=== PATIENT | female | born 1980 | race Caucasian/White ===

== ENCOUNTER 2021-05-08 18:13 | Emergency (ER) | payer OTHER ==
[~2021-05-08] VITALS: Ht 167.6 cm; Wt 121.0 kg
--- NOTE | 2021-05-08 18:48 | NUR ---
ERP WAS IN TO SEE PT. 4% LIDO INSTILLED INTO NARES AND PT LYING FLAT ON GURNEY. PT STILL REPORTING THAT ROOM IS SPINNING, MODERATELY ANXIOUS/CRYING. AT BS. PT UNDERSTANDS POC.
[2021-05-08] MEDS ORDERED: LIDOCAINE 4% TOPICAL SOLUTION 50 ML TP ONE (19:00)
[2021-05-08 19:04] LABS: BASOPHILS % (AUTO) 1 % (0-1); EOSINOPHILS % (AUTO) 4 % (1-7); LYMPHOCYTES % (AUTO) 33 % (22-44); MEAN CORPUSCULAR HEMOGLOBIN 30.4 pg (27.0-34.8); MEAN CORPUSCULAR HGB CONC 34.6 g/dL (32.4-35.8); MEAN PLATELET VOLUME 7.3 fL (7.4-10.4); MONOCYTES % (AUTO) 8 % (2-9); NEUTROPHILS % (AUTO) 55 % (42-75); PLATELET COUNT 398 x10^3/uL (130-400); RED BLOOD COUNT 4.87 x10^6/uL (3.82-5.3); RED CELL DISTRIBUTION WIDTH 13.6 % (9.6-15.2)
[2021-05-08 19:10] LABS: ALANINE AMINOTRANSFERASE 29 U/L (12-78); ALBUMIN 3.5 g/dL (3.4-5.0); ANION GAP 6 mmol/L (5-15); CALCIUM 9.1 mg/dL (8.5-10.1); CHLORIDE 107 mmol/L (98-107); CREATININE 0.81 mg/dL (0.55-1.02)
[2021-05-08 19:14] LABS: ALKALINE PHOSPHATASE 80 U/L (45-117); BILIRUBIN,TOTAL 0.3 mg/dL (0.2-1.0); TOTAL PROTEIN 7.9 g/dL (6.4-8.2)
[2021-05-08] MEDS ORDERED: ASPI-963 PO (19:17)
[2021-05-08] MEDS ORDERED: ALLERGY PILL PO (19:17)
[2021-05-08] MEDS ORDERED: GABA100C PO (19:17)
[2021-05-08] MEDS ORDERED: PROM25TA10 PO (19:19)
[2021-05-08] MEDS ORDERED: NIFE-6 PO (19:19)
--- NOTE | 2021-05-08 19:29 | NUR ---
PT REPORTS FEELING A LITTER BETTER AFTER LIDOCAINE INSTALLATION INTO NARES. VALIUM ORDERED BY ERP IN PREPARATION FOR MRI, PT AGREEABLE TO GETTING AN IV AND VALIUM.
[2021-05-08] MEDS ORDERED: DIAZEPAM 5 MG/ML, 2ML IVPush PRN (19:30)
[2021-05-08] MEDS ORDERED: DIAZEPAM 5 MG/ML, 2ML ONE (19:36)
--- NOTE | 2021-05-08 20:09 | NUR ---
PT MEDICATED WITH VALIUM PER ORDERS PRIOR TO MRI. DENIES MANY SYMPTOMS AT THIS TIME BUT STATES HER SYMPTOMS OFTEN COME ON WHEN SHE IS LYING FLAT. TAKEN TO MRI WITH MEDICAL ONCOLOGIST [facility]IA [id number]
--- NOTE | 2021-05-08 20:37 | NUR ---
PT RETURNS FROM MRI.
--- NOTE | 2021-05-08 21:00 | NUR ---
PT REPORTS SENSATION OF A MILD "BAND" OF HEADACHE AROUND THE FRONT OF HER HEAD AFTER RECEVING VALIUM. DECLINES INTERVENTION AT THIS TIME. CALM, SITTING UP IN [facility]. REMAINS AT BS. REPORTED TO EVETTE WOOD.
--- NOTE | 2021-05-08 21:05 | NUR ---
RECEIVED REPORT FROM NINA GREEN TO ASSUME CARE OF PT.
[2021-05-08] MEDS ORDERED: KETOROLAC 30 MG/1 ML ONE (21:59)
[2021-05-08] MEDS ORDERED: DIPHENHYDRAMINE 50 MG/ML, 1ML ONE (21:59)
[2021-05-08] MEDS ORDERED: METOCLOPRAMIDE 5 MG/ML, 2ML ONE (21:59)
[2021-05-08] MEDS ORDERED: DEXAMETHASONE 4 MG/ML, 1ML IVPush ONE (22:00)
[2021-05-08] MEDS ORDERED: DEXAMETHASONE 4 MG/ML, 5ML ONE (22:00)
[2021-05-08] MEDS ORDERED: SODIUM CHLORIDE FLUSH 10ML SYR IVF ONE (22:00)
[2021-05-08] MEDS ORDERED: METOCLOPRAMIDE 5 MG/ML, 2ML IVPush ONE (22:00)
[2021-05-08] MEDS ORDERED: DIPHENHYDRAMINE 50 MG/ML, 1ML IVPush ONE (22:00)
[2021-05-08] MEDS ORDERED: KETOROLAC 30 MG/1 ML IVPush ONE (22:00)
--- NOTE | 2021-05-08 22:26 | NUR ---
PT. MEDICATED PER MAR. PT. AWARE OF PLAN FOR D/C AND AGREEABLE.
[2021-05-08 22:49] VITALS: BP 112/63
== END 2021-05-08 22:57 | disposition home or self-care (01) ==
LOC: ED 18:43
DX: R51.9 Headache, unspecified (principal); R42 Dizziness and giddiness; R11.0 Nausea
CPT/HCPCS: 36415; 64505; 70551; 80053; 84703; 85025; 93005; 96374; 96375; 99285; J1100; J1200; J1885; J2765; J3360

== ENCOUNTER 2021-05-16 09:07 | Emergency (ER) | payer OTHER ==
[~2021-05-16] VITALS: Ht 170.2 cm; Wt 124.0 kg
[~2021-05-16 09:07] MED LIST: ALLERGY PILL PO; ASPI-963 PO; GABA100C PO; NIFE-6 PO; PROM25TA10 PO
--- NOTE | 2021-05-16 09:15 | NUR ---
PT BIB [facility] TODAY AFTER BEING SEEN BY ER DOCTOR AT [facility] LAST WEEK FOR VERTIGO. PT GIVEN REFERRAL FOR A NEUROLOGIST BUT HAS BEEN UNABLE TO GET IN TO SEE THEM AND SYMPTOMS ARE GETTING "WORSE". PER PT, PT EXPERIENCING MUSCLE SPASMS AND TREMULOUS EXTREMITIES AFTER BEING D/C FROM [facility] REC[facility]LY. UPON ARRIVAL TO [facility] ED, PT HAS STABLE VS. PT CHANGED INTO GOWN AND IS IN GURNEY AWAITING ERP. PT ATTTACHED TO ALL MONITORS. PT HAS CALL LIGHT WITHIN REACH.
--- NOTE | 2021-05-16 09:31 | NUR ---
PIV ACCESS ESTABLISHED. BLOOD COLLECTED. AWAITING ORDERS FROM [facility].
[2021-05-16] MEDS ORDERED: MECLIZINE CHEWABLE 25 MG TAB PO ONE (10:00)
[2021-05-16] MEDS ORDERED: LORazepam 1MG TABLET PO ONE ×2 (10:00→13:30)
[2021-05-16] MEDS ORDERED: MECLIZINE CHEWABLE 25 MG TAB ONE (10:01)
[2021-05-16] MEDS ORDERED: LORazepam 1MG TABLET ONE ×2 (10:01→13:44)
--- NOTE | 2021-05-16 10:03 | NUR ---
PT MEDICATED PER MAR
[2021-05-16 10:26] LABS: BASOPHILS % (AUTO) 0 % (0-1); EOSINOPHILS % (AUTO) 2 % (1-7); LYMPHOCYTES % (AUTO) 11 % (22-44); MEAN CORPUSCULAR HEMOGLOBIN 30.2 pg (27.0-34.8); MEAN CORPUSCULAR HGB CONC 34.2 g/dL (32.4-35.8); MEAN PLATELET VOLUME 7.3 fL (7.4-10.4); MONOCYTES % (AUTO) 4 % (2-9); NEUTROPHILS % (AUTO) 84 % (42-75); PLATELET COUNT 360 x10^3/uL (130-400); RED BLOOD COUNT 5.21 x10^6/uL (3.82-5.3); RED CELL DISTRIBUTION WIDTH 13.4 % (9.6-15.2)
[2021-05-16 10:37] LABS: ALBUMIN 3.9 g/dL (3.4-5.0); ANION GAP 4 mmol/L (5-15); CALCIUM 9.3 mg/dL (8.5-10.1); CHLORIDE 107 mmol/L (98-107)
[2021-05-16 10:40] LABS: ALANINE AMINOTRANSFERASE 26 U/L (12-78); ALKALINE PHOSPHATASE 93 U/L (45-117); BILIRUBIN,TOTAL 0.3 mg/dL (0.2-1.0); CREATINE KINASE, TOTAL 69 U/L (26-192); CREATININE 0.74 mg/dL (0.55-1.02); TOTAL PROTEIN 8.7 g/dL (6.4-8.2)
[2021-05-16] MEDS ORDERED: METOCLOPRAMIDE 5 MG/ML, 2ML IVPush ONE (11:30)
[2021-05-16] MEDS ORDERED: DIPHENHYDRAMINE 50 MG/ML, 1ML IVPush ONE (11:30)
[2021-05-16] MEDS ORDERED: DIPHENHYDRAMINE 50 MG/ML, 1ML ONE (11:41)
[2021-05-16] MEDS ORDERED: METOCLOPRAMIDE 5 MG/ML, 2ML ONE (11:42)
--- NOTE | 2021-05-16 11:48 | NUR ---
PT MEDICATED PER MAR.
[2021-05-16] MEDS ORDERED: HYDROmorphone 2 MG/ML, 1ML ONE (12:04)
[2021-05-16] MEDS ORDERED: ONDANSETRON 2MG/ML, 2ML ONE (12:05)
[2021-05-16] MEDS ORDERED: NAPROXEN 500 MG TABLET PO ONE (13:30)
[2021-05-16] MEDS ORDERED: NAPROXEN 500 MG TABLET ONE (13:44)
--- NOTE | 2021-05-16 13:52 | NUR ---
PT MEDICATED PER DEC. PT D/C WITH D/C SUMMARY AND SCRIPTS. ALL QUESTIONS ANSWERED. PT AMBULATES TO REGISTRATION DESK WITH STEADY GAIT FOR D/C HOME AND DENIES ANY OTHE R NEEDS PERTAINING TO THIS VISIT. PIV ACCESS D/C WITH TIP INTACT.
[2021-05-16 13:54] VITALS: BP 126/77
== END 2021-05-16 14:06 | disposition home or self-care (01) ==
LOC: ED 09:56
DX: R25.1 Tremor, unspecified (principal); R51.9 Headache, unspecified; R42 Dizziness and giddiness
CPT/HCPCS: 36415; 80053; 82550; 83605; 85025; 87040; 96374; 96375; 99284; J1200; J2765

== ENCOUNTER 2021-06-14 08:16 | Outpatient (CLI) | payer OTHER | END 2021-06-14 23:59 | disposition home or self-care (01) | LOC: CARD 08:16 | PROVIDERS: ATTEND Psychiatry & Neurology Neurology | DX: R25.8 Other abnormal involuntary movements (principal); R41.3 Other amnesia | CPT/HCPCS: 95816 ==